=== PATIENT | female | born 1980 | race Caucasian/White ===

== ENCOUNTER → 2020-05-14 | Outpatient (CLI) | payer OTHER ==
[~2020-05-14] MED LIST: COZAAR 25MG TAB25 MG GT; ELIQUIS 5 MG TAB5 MG PO; K-DUR TAB 10 M10 MEQ PO; LASIX20 MG PO
== END ==
LOC: HEART 5 08:29
DX: R06.02 Shortness of breath (principal); R94.39 Abnormal result of other cardiovascular function study
CPT/HCPCS: 78452; A9502